=== PATIENT | male | born 1995 | race Caucasian/White ===

== ENCOUNTER 2018-05-15 15:34 | Emergency (ER) | payer MEDICAID ==
[~2018-05-15] VITALS: Ht 180.3 cm; Wt 70.3 kg
[2018-05-15 19:24] VITALS: BP 112/69
[2018-05-15] MEDS ORDERED: ONDANSETRON ODT 4 MG TAB PO ONE (19:30)
[2018-05-15] MEDS ORDERED: MEPERIDINE HCL (50 MG/ML) 1 ML VIAL IM ONE (19:30)
== END 2018-05-15 20:12 | disposition home or self-care (01) ==
LOC: EDUNIT# 15:34 → EDBD 15:34 → ER 15:34
DX: R51 Headache (principal); M62.838 Other muscle spasm; Z88.0 Allergy status to penicillin; V43.52XA Car driver injured in collision with other type car in traffic accident, initial encounter; Y93.89 Activity, other specified; Y99.8 Other external cause status; Y92.410 Unspecified street and highway as the place of occurrence of the external cause
CPT/HCPCS: 70450; 71046; 73080; 73562; 93005; 96372; 99284; J2175; Q0162